=== PATIENT | female | born 1955 | race American Indian/Alaskan Native ===

== ENCOUNTER 2016-07-04 17:51 | Emergency (ER) | payer MEDICAID ==
[2016-07-04 20:08] VITALS: BP 148/97
--- NOTE | 2016-07-04 22:51 | Emergency Department Report ---
HPI - General Chief Complaint: Extremity Problem,Nontraumatic Time Seen by Provider: 07/04/16 22:27 - HPI HPI: She is a 61-year-old female past medical history of hypertension on blood pressure medication who presents to ED complaining of right foot pain 4 days. Patient states she does not recall injury to the foot. Patient describes pain as a throbbing constant type pain rates it a 10 out of 10 intensity. Patient states pain aggravated with weightbearing. Patient denies calf tenderness or pain. She denies fevers/chills/nausea/vomiting/abdominal pain/chest pain or any other problems. ED Past Medical Hx - Past Medical History Previous Medical History?: Yes Hx Hypertension: Yes Hx GERD: Yes Hx Arthritis: Yes Hx Psychiatric Treatment: Yes (depression) Additional medical history: high cholesterol. fibromyalgia. siatica - Surgical History Past Surgical History?: Yes Additional Surgical History: cataract surgery. laser surgery left eye. hysterectomy - Social History Smoking Status: Never Smoker Substance Use Type: None - Medications Home Medications: Home Medications Medication Instructions Recorded Confirmed Last Taken Type Nitrofurantoin [place]/M-Cryst 100 mg PO Q12HR #14 capsule 06/08/13 Unknown Rx [Macrobid] Ondansetron [Zofran Odt] 4 mg PO Q4H #10 tab.rapdis 06/08/13 Unknown Rx HYDROcodone/APAP 5-325 [[place] 1 each PO Q6HR PRN #12 tablet 07/04/16 Unknown Rx 5-325 mg TAB] Naproxen [Naprosyn TAB] 500 mg PO BID #30 tablet 07/04/16 Unknown Rx ED Review of Systems ROS: Stated complaint: RT FOOT SWOLLEN Other details as noted in HPI Constitutional: denies: chills, fever Eyes: denies: eye pain, eye discharge, vision change ENT: denies: ear pain, throat pain, hearing loss Respiratory: denies: cough, shortness of breath, wheezing Cardiovascular: denies: chest pain, palpitations Endocrine: no symptoms reported Gastrointestinal: denies: abdominal pain, nausea, vomiting, diarrhea Genitourinary: denies: urgency, dysuria, discharge Musculoskeletal: denies: back pain, joint swelling, arthralgia Skin: denies: rash, lesions Neurological: denies: headache, weakness, numbness, paresthesias Psychiatric: denies: anxiety, depression Hematological/Lymphatic: denies: easy bleeding, easy bruising, swollen glands Physical Exam - Physical Exam Vital Signs: Vital Signs 07/04/16 20:02 Temperature 97.9 F Pulse Rate 84 Respiratory 22 Rate Blood Pressure 148/97 O2 Sat by Pulse 98 Oximetry Physical Exam: GENERAL: Alert and oriented x3, no apparent distress, Normal Gait, atraumatic. HEAD: Head is normocephalic and a-traumatic. EYES: Extra ocular muscles are intact. Pupils are equal, round, and reactive to light and accommodation. NECK: Supple. Non edematous, No carotid bruits. No lymphadenopathy or thyromegaly. No C-spine tenderness LUNGS: Symetrical with respiration, No wheezing, no rales or crackles, CTAB. HEART: S1, S2 present, regular rate and rhythm without murmur, no rubs, no gallops. ABDOMEN: No organomegaly was noted,Positive bowel sounds, soft, and non- distended. . Nontender to palpation on all Quadrants, NO CVA tenderness. EXTREMITIES/MUSCULOSKELETAL: No cyanosis, clubbing, rash, lesions or edema. Full ROM bilaterally. UE/LE Pulses 2+ bilaterally. LE and UE 5+ strength bilaterally, straight leg raise negative bilaterally. Right crossing tender to palpation. Equal joint is intact. Patient able to flex and extend the foot. NEUROLOGIC: The patient is cooperative with no focal neurologic deficits. Cranial nerves II through XII are grossly intact. Normal speech. No loss of sensation SKIN: Warm and dry, No lesions, No ulceration or induration present. ED Course Vital Signs 07/04/16 20:02 Temperature 97.9 F Pulse Rate 84 Respiratory 22 Rate Blood Pressure 148/97 O2 Sat by Pulse 98 Oximetry ED Medical Decision Making - Medical Decision Making 61-year-old female presents with osteoarthritic Foot pain. ED course: Foot x-ray shows no fracture, dislocation. Positive for Heel Spur and osteoarthrosis Discussed findings with patient. Discussed the patient follow-up with podiatry. Vital signs are normal patient is in no acute distress. Discussed the patient if worsening symptoms to return to ED otherwise follow-up with foot doctor as referred Critical care attestation.: If time is entered above; I have spent that time in minutes in the direct care of this critically ill patient, excluding procedure time. ED Disposition Clinical Impression: Localized osteoarthrosis of ankle and foot Qualifiers: Laterality: right Qualified Code(s): M19.071 - Primary osteoarthritis, right ankle and foot Disposition: DISCHARGED TO HOME OR SELFCARE Is pt being admited?: No Does the pt Need Aspirin: No Condition: Stable Instructions: Osteoarthritis (ED), Plantar Fasciitis (ED) Prescriptions: HYDROcodone/APAP 5-325 [[place] 5-325 mg TAB] 1 each PO Q6HR PRN #12 tablet PRN Reason: Pain Naproxen [Naprosyn TAB] 500 mg PO BID #30 tablet Referrals: JENNIFER ARGUELLO MD [Primary Care Provider] - 3-5 Days ARIA SEGUAR MD [Referring] - 3-5 Days JOSEPH SALES MD [Staff Physician] - 3-5 Days Forms: Work/School Release Form(ED) Time of Disposition: 23:16
--- NOTE | 2016-07-04 22:55 | XRay Report ---
FINAL REPORT EXAM: XR FOOT 3 RT HISTORY: Foot PAIN COMPARISONS: None. FINDINGS: Three nonweightbearing views right foot Hallux valgus deformity is present with associated [id number] right 1st metatarsophalangeal osteoarthrosis. Mild distal interphalangeal and tarsometatarsal osteoarthrosis is also suggested. No fracture, other gross malalignment or deformity. A calcaneal heel spur is present. IMPRESSION: Hallux valgus with associated osteoarthrosis. Calcaneal heel spur.
== END 2016-07-04 23:32 | disposition home or self-care (01) ==
LOC: ED 17:51
DX: M19.071 Primary osteoarthritis, right ankle and foot (principal); I10 Essential (primary) hypertension; K21.9 Gastro-esophageal reflux disease without esophagitis
CPT/HCPCS: 99283

== ENCOUNTER 2018-03-12 11:38 | Emergency (ER) | payer MEDICAID ==
[2018-03-12 12:08] VITALS: BP 126/60
--- NOTE | 2018-03-12 12:12 | Emergency Department Report ---
ED Fever HPI - General Chief Complaint: Pain General Stated Complaint: generalized pain Time Seen by Provider: 03/12/18 12:05 Source: patient Exam Limitations: no limitations - History of Present Illness Initial Comments: He is a 62-year-old female that presents emergency room with body aches, flulike symptoms. Patient states she is having a nonproductive cough. Patient compla ins of nausea without vomiting. Patient states already been going on for 3 days. Patient states she has not had a fever. Patient states she did not get a flu shot. Fever Severity/Quality: no fever Fever Therapy DRIER: Ibuprofen Associated Symptoms: cough, muscle aches, nausea/vomiting, sore throat. denies: abdominal pain, chest pain, confusion, diaphoresis, headache, rash, shortness of breath, stiff neck, syncope, weakness ED Review of Systems ROS: Stated complaint: generalized pain Other details as noted in HPI Constitutional: chills. denies: fever Eyes: denies: eye pain, eye discharge, vision change ENT: denies: ear pain, throat pain Respiratory: cough. denies: shortness of breath, wheezing Cardiovascular: denies: chest pain, palpitations Endocrine: no symptoms reported Gastrointestinal: denies: abdominal pain, nausea, diarrhea Genitourinary: denies: urgency, dysuria, discharge Musculoskeletal: denies: back pain, joint swelling, arthralgia Skin: denies: rash, lesions Neurological: denies: headache, weakness, paresthesias Psychiatric: denies: anxiety, depression Hematological/Lymphatic: denies: easy bleeding, easy bruising ED Past Medical Hx - Past Medical History Previous Medical History?: Yes Hx Hypertension: Yes Hx GERD: Yes Hx Arthritis: Yes Hx Psychiatric Treatment: Yes (depression) Additional medical history: high cholesterol. fibromyalgia. siatica - Surgical History Past Surgical History?: Yes Additional Surgical History: cataract surgery. laser surgery left eye. hysterectomy - Family History Family history: no significant - Social History Smoking Status: Never Smoker Substance Use Type: None - Medications Home Medications: Home Medications Medication Instructions Recorded Confirmed Last Taken Type Nitrofurantoin [place]/M-Cryst 100 mg PO Q12HR #14 capsule 06/08/13 Unknown Rx [Macrobid] Ondansetron [Zofran Odt] 4 mg PO Q4H #10 tab.rapdis 06/08/13 Unknown Rx HYDROcodone/APAP 5-325 [[place] 1 each PO Q6HR PRN #12 tablet 07/04/16 Unknown Rx 5-325 mg TAB] Naproxen [Naprosyn TAB] 500 mg PO BID #30 tablet 07/04/16 Unknown Rx ALBUTEROL Inhaler(NF) [VENTOLIN 1 puff IH Q4HR PRN #1 inha 12/29/17 Unknown Rx Inhaler(NF)] Benzonatate [Tessalon Perles] 100 mg PO Q8HR PRN #20 capsule 12/29/17 Unknown Rx predniSONE [Prednisone] 50 mg PO DAILY #5 tablet 12/29/17 Unknown Rx Doxycycline Monohydrate 100 mg PO BID 10 Days #20 capsule 03/12/18 Unknown Rx ED Physical Exam - General Limitations: No Limitations General appearance: alert, in no apparent distress - Head Head exam: Present: atraumatic, normocephalic - Eye Eye exam: Present: normal appearance, PERRL Pupils: Present: normal accommodation - ENT ENT exam: Present: mucous membranes moist - Neck Neck exam: Present: normal inspection - Respiratory Respiratory exam: Present: normal lung sounds bilaterally. Absent: respiratory distress - Cardiovascular Cardiovascular Exam: Present: regular rate, normal rhythm. Absent: systolic murmur, diastolic murmur, rubs, gallop - GI/Abdominal GI/Abdominal exam: Present: soft, normal bowel sounds - Extremities Exam Extremities exam: Present: normal inspection - Back Exam Back exam: Present: normal inspection - Neurological Exam Neurological exam: Present: alert, oriented X3 - Psychiatric Psychiatric exam: Present: normal affect, normal mood - Skin Skin exam: Present: warm, dry, intact, normal color. Absent: rash ED Course Vital Signs 03/12/18 03/12/18 03/12/18 11:40 12:06 12:07 Temperature 97.7 F Pulse Rate 90 Respiratory 20 Rate Blood Pressure 146/81 126/60 O2 Sat by Pulse 98 98 99 Oximetry 03/12/18 12:08 Temperature 98 F Pulse Rate Respiratory Rate Blood Pressure O2 Sat by Pulse Oximetry - Reevaluation(s) Reevaluation #1: discussed all results with patient. This plan of care outpatient. Patient agrees plan of care. Patient stable for discharge. Patient given discharge instructions. Patient given return to ER instructions. Patient voiced understanding of all instructions 03/12/18 14:10 ED Medical Decision Making - Lab Data Result diagrams: 03/12/18 12:20 03/12/18 12:20 - Medical Decision Making Patient's 8-year-old female that presents emergency with complaints of flulike symptoms. Patient denied fever. Patient complained of bodyaches. Patient found to have a URI. Patient will be given antibiotics. Patient's labs unremarkable. Patient to be discharged home. Patient stable for discharge. - Differential Diagnosis flu. strep. bpdy ache. uri. sinusitis. Critical care attestation.: If time is entered above; I have spent that time in minutes in the direct care of this critically ill patient, excluding procedure time. ED Disposition Clinical Impression: Body aches, Cough URI (upper respiratory infection) Qualifiers: URI type: acute nasopharyngitis (common cold) Qualified Code(s): J00 - Acute nasopharyngitis [common cold] Disposition: TO HOME OR SELFCARE Is pt being admited?: No Does the pt Need Aspirin: No Condition: Stable Instructions: Upper Respiratory Infection (ED) Additional Instructions: Patient follow up with primary care in 2-3 days. Patient to return to ER if condition worsens. Patient to continue all medications. Patient is to take meds as directed. Patient to increase water. Patient to rest. Patient to take Tylenol or ibuprofen when necessary for pain. Prescriptions: Doxycycline Monohydrate 100 mg PO BID 10 Days #20 capsule Referrals: Gary Barrera [Other] - 2-3 Days Time of Disposition: 14:15
[2018-03-12 12:43] LABS: Basophils % (Auto) 0.6 % (0.0-1.8); Eosinophils # (Auto) 0.1 K/mm3 (0.0-0.4); Eosinophils % (Auto) 1.6 % (0.0-4.3); Hematocrit 36.9 % (30.3-42.9); Hemoglobin 11.6 gm/dl (10.1-14.3); Lymphocytes # (Auto) 0.8 K/mm3 (1.2-5.4); Lymphocytes % (Auto) 9.9 % (13.4-35.0); Mean Corpuscular HGB Conc 32 % (30-34); Mean Corpuscular Volume 87 fl (79-97); Monocytes # (Auto) 0.4 K/mm3 (0.0-0.8); Monocytes % (Auto) 5.4 % (0.0-7.3); Platelet Count 241 K/mm3 (140-440); Red Blood Count 4.23 M/mm3 (3.65-5.03); Red Cell Distribution Width 15.4 % (13.2-15.2)
[2018-03-12 12:48] LABS: Color,Urine Yellow (Yellow)
[2018-03-12 12:49] LABS: Bilirubin,Urine NEG (Negative); Blood,Urine NEG (Negative); Protein,Urine <15 mg/dL mg/dL (Negative); Urobilinogen,Urine < 2.0 mg/dL (<2.0)
[2018-03-12 13:00] LABS: Albumin 3.9 g/dL (3.9-5); Calcium 9.8 mg/dL (8.4-10.2)
[2018-03-12] MEDS ORDERED: NORCO 10/325 PO ONE (13:16)
== END 2018-03-12 14:47 | disposition home or self-care (01) ==
LOC: ED 11:38
DX: J06.9 Acute upper respiratory infection, unspecified (principal); I10 Essential (primary) hypertension; K21.9 Gastro-esophageal reflux disease without esophagitis; M19.90 Unspecified osteoarthritis, unspecified site; F32.9 Major depressive disorder, single episode, unspecified; E78.00 Pure hypercholesterolemia, unspecified; Z98.890 Other specified postprocedural states; Z90.710 Acquired absence of both cervix and uterus; Z88.5 Allergy status to narcotic agent; Z88.0 Allergy status to penicillin
CPT/HCPCS: 36415; 80053; 81001; 85025; 87116; 87400; 87430; 99284